=== PATIENT | male | born 1960 ===

== ENCOUNTER 2016-12-31 16:39 | Inpatient (IN) | payer MEDICARE, OTHER ==
[2016-12-31 16:39] VITALS: PULSE 84; BMI 30.1
[2016-12-31] MEDS ORDERED: Sodium Chloride 0.9% 1,000 ML IV STA ×2 (16:55)
[2016-12-31 17:23] LABS: VENOUS BLOOD GAS BASE EXCESS -0.1 mmol/L (0.0-2.0); VENOUS BLOOD GAS PO2 36 mm/Hg (30-55); VENOUS BLOOD PH 7.32 (7.32-7.43)
--- NOTE | 2016-12-31 17:25 | ED PDOC ---
Arrival/HPI - General Historian: Patient - History of Present Illness Time/Duration: > week Symptom Onset: Gradual Symptom Course: Unchanged Quality: Pressure Severity Level: Mild <Cristiano Limon - Last Filed: 12/31/16 19:56> <Brain Rodrigues - Last Filed: 12/31/16 21:49> - General Chief Complaint: Palpitations Time Seen by Provider: 12/31/16 16:40 - History of Present Illness Narrative History of Present Illness (Text): 56 M with PMH of DM, afib on anticoagulation, s/p liver transplant, Mitral valve replacement presents to ED with complaint of palpitations. Patient stated that this has been going on intermittently for 2 weeks. It was a gradual onset and have progressively gotten worse. As per patient, he saw his metallurgical or materials technician recently and he put a "monitor" on his heart. Today, his palpitations became worse and called metallurgical or materials technician who instructed him to go to ED. Patient takes coumadin daily and is compliant. Patient takes glipizide and insulin for his DM. He doesnt check sugars daily or take insulin regularly. Patient also complains of epigastric discomfort that he describes as pressure. He stated it was minimal. Nothing make symptoms better or worse. Admits to fatigue. Denies fever/chills, vision changes, dizziness/lightheadedness, vertigo, cp, cough, sob , n/v/d. PMH: DM, afib on anticoagulation, s/p liver transplant, Mitral valve replacement Meds: As per EMR Allergy: NKDA PSH: kidney transplant and mitral valve replacement in 2004 Hosp: earlier this year for palpitations FH: Denies Social: retired, former smoker, denies etoh/illict drug use 12/31/16 17:41 (Cristiano Limon) Past Medical History - Provider Review Nursing Documentation Reviewed: Yes - Travel History Have you recently traveled outside [place] w/in the past 3 mons?: No - Infectious Disease Hx of Infectious Diseases: None - Tetanus Immunization Tetanus Immunization: Unknown - Cardiac Hx Cardiac Arrhythmia: Yes Hx Mitral Valve Prolapse: Yes - Neurological HX Cerebrovascular Accident: No (2 YRS AGO) Hx Transient Ischemic Attacks (TIA): Yes - HEENT Hx Deafness: Yes (THINKS FOREIGN OBJECT INSIDE RIGHT EAR "WHOOSH SOUND") - Renal Other/Comment: liver transplant - Endocrine/Metabolic Hx Diabetes Mellitus Type 1: Yes - Hematological/Oncological Hx Hepatitis B: Yes - Musculoskeletal/Rheumatological Hx Falls: Yes - Gastrointestinal Hx Liver Failure: Yes (transplant 2004) - Psychiatric Hx Depression: No Hx Emotional Abuse: No Hx Physical Abuse: No Hx Substance Use: No - Surgical History Hx Cardiac Catheterization: Yes Hx Liver Transplant: Yes (2004) Hx Open Heart Surgery: Yes Hx Valve Replacement: Yes (MITRAL) - Suicidal Assessment Feels Threatened In Home Enviroment: No <Cristiano Limon - Last Filed: 12/31/16 19:56> Family/Social History - Physician Review Nursing Documentation Reviewed: Yes Family/Social History: No Known Family HX Smoking Status: Never Smoked Hx Alcohol Use: No Hx Substance Use: No Hx Substance Use Treatment: No <Cristiano Limon - Last Filed: 12/31/16 19:56> Allergies/Home Meds <Cristiano Limon - Last Filed: 12/31/16 19:56> <Brain Rodrigues - Last Filed: 12/31/16 21:49> Allergies/Adverse Reactions: Allergies No Known Allergies Allergy (Verified 07/21/15 21:44) Home Medications: Home Meds Medication Instructions Recorded Confirmed GlipiZIDE [Glipizide] 10 mg PO TID 07/21/15 12/31/16 Mycophenolate Mofetil [Cellcept] 750 mg PO BID 07/21/15 12/31/16 Omeprazole Magnesium [Prilosec Otc] 20 mg PO DAILY 07/21/15 12/31/16 Tacrolimus [Prograf] 1 mg PO BID 07/21/15 12/31/16 Warfarin [Coumadin] 10 mg PO DAILY 07/21/15 12/31/16 Tamsulosin [Flomax] 0.4 mg PO DAILY 12/31/16 12/31/16 Review of Systems - Review of Systems Constitutional: Fatigue. absent: Weight Change, Fevers, Night Sweats Eyes: absent: Vision Changes, Photophobia, Eye Pain ENT: absent: Hearing Changes, Tinnitus, TMJ Pain Respiratory: absent: SOB, Cough, Sputum, Wheezing Cardiovascular: Palpitations. absent: Chest Pain, Calf Pain, PATTERSON, Syncope Gastrointestinal: Abdominal Pain. absent: Constipation, Diarrhea, Nausea, Vomiting Genitourinary Male: absent: Dysuria, Frequency, Hematuria Musculoskeletal: absent: Arthralgias, Back Pain, Neck Pain, Joint Swelling Skin: absent: Rash, Pruritis, Skin Lesions, Laceration Neurological: absent: Headache, Dizziness, Focal Weakness, Seizure Endocrine: absent: Diaphoresis, Polyuria, Polydipsia Hemo/Lymphatic: absent: Adenopathy, Easy Bleeding, Easy Bruising Psychiatric: absent: Anxiety, Depression, Suicidal Ideation <Cristiano Limon - Last Filed: 12/31/16 19:56> Physical Exam Vital Signs Reviewed: Yes Temperature: Afebrile Blood Pressure: Normal Pulse: Tachycardic Respiratory Rate: Normal Appearance: Positive for: Well-Appearing, Non-Toxic, Comfortable Pain Distress: None Mental Status: Positive for: Alert and Oriented X 3 Finger Stick Blood Glucose: 428 - Systems Exam Head: Present: Atraumatic, Normocephalic Pupils: Present: PERRL Extroacular Muscles: Present: EOMI Conjunctiva: Present: Normal Ears: Present: Normal, NORMAL TM Mouth: Present: Moist Mucous Membranes Pharnyx: Present: Normal Nose (External): Present: Atraumatic Nose (Internal): Present: Normal Inspection Neck: Present: Normal Range of Motion, Trachea Midline. No: MIDLINE TENDERNESS , Paraspinal Tenderness Respiratory/Chest: Present: Clear to Auscultation, Good Air Exchange. No: Respiratory Distress, Accessory Muscle Use Cardiovascular: Present: Irregular Rhythm, Peripheal Pulses Present, Tachycardic Abdomen: Present: Normal Bowel Sounds. No: Tenderness, Distention, Peritoneal Signs, Rebound, Guarding Back: No: CVA Tenderness Upper Extremity: Present: Normal ROM, NORMAL PULSES, Neurovascularly Intact, Capillary Refill < 2s. No: Cyanosis Lower Extremity: Present: NORMAL PULSES, Normal ROM, Neurovascularly Intact, Capillary Refill < 2 s. No: Cyanosis Neurological: Present: GCS=15, CN II-XII Intact, Speech Normal, Motor Func Grossly Intact, Normal Sensory Function, Normal Cerebellar Funct Skin: Present: Warm, Dry, Normal Color Lymphatic: No: Cervical Adenopathy, Axillary Adenopathy, Inguinal Adenopathy Psychiatric: Present: Alert, Oriented x 3, Normal Insight, Normal Concentration , Normal Affect, Normal Mood <Cristiano Limon - Last Filed: 12/31/16 19:56> <Brain Rodrigues - Last Filed: 12/31/16 21:49> Vital Signs Temp Pulse Resp BP Pulse Ox 12/31/16 21:21 107 H 18 199/55 H 99 12/31/16 20:25 109 H 18 125/77 99 12/31/16 19:55 125 H 117/77 99 12/31/16 19:00 127 H 17 116/76 100 12/31/16 18:45 111 H 17 101/69 98 12/31/16 18:39 111 H 17 101/69 97 12/31/16 18:30 118 H 16 105/68 98 12/31/16 18:15 86 18 129/60 98 12/31/16 18:00 86 17 111/70 97 12/31/16 17:45 100 H 18 116/69 97 12/31/16 17:43 113 H 129/72 12/31/16 17:30 99 H 17 138/88 100 12/31/16 17:15 96 H 17 129/72 99 12/31/16 17:12 143 H 138/83 12/31/16 17:10 140 H 18 138/83 99 12/31/16 16:55 126 H 18 138/83 97 12/31/16 16:39 98.3 F 143 H 18 131/83 99 Medical Decision Making - Lab Interpretations I have reviewed the lab results: Yes Interpretation: Abnormal lab values (Glucose, Mag, LFTs) <Venkat Limony - Last Filed: 12/31/16 19:56> - Critical Care Critical Care Minutes: 60 minutes <Brain Rodrigues - Last Filed: 12/31/16 21:49> ED Course and Treatment: EKG was done immediately revealed atrial fibrillation at 145 bpm. finger stick demonstrated glucose of 428. IV fluids were started 2L. Cardizem IV was given once. HR decreased to 90s. Repeat ekg was done which showed afib at 107 bpm. Cardizem 60 mg PO given once. CXR, CBC, CMP, Cardiac enzymes, Mag, Phos, TSH, VBG, and UA ordered. Abnormal labs were Mag 1.3, glucose of 418, and elevated LFts. 2 gm of IV Mag was given. Cardizem IVP and PO did not control rate so Cardizem drip was started. Patient to be admitted. ICU attending was consulted. Tank Stave Assembler evaluated patient and accepted to ICU. (Cristiano Limon) 12/31/16 17:46 56yo male, presents to Emergency department for evaluation of palpitations, ongoing for a week. Patient Seen With Resident: In agreement with resident note which contains more details about the patient. Patient was seen and evaluated with resident. Came up with plan and treatment together. Initial EKG: Rapid Afib with HR of 145 bpm. Repeat EKG performed: Rapid Afib with HR of 107 bpm after Cardiazem 20mg IV. PO Cardiazem was ordered. 12/31/16 19:21 Patient's HR increased again to 125-130. He is asymptomatic. He was started on a cardizem drip. Patient was evaluated by Dr. Jorge and accepted to the ICU. 12/31/16 21:46 Patient has been on the cardiazem drip at 5 without titration. HR maintain at 80 -90's Afib and Blood pressure within normal range and stable. Pateint continues to be asymptomatic. I discussed the case with Dr. Yeager who will accept the case to her service. She requested Dr. Huber cardiology. Dr. Huber is being covered by Dr. Saleh. I spoke to Dr. Saleh and since patient has been stable with a controlled HR and BP as noted he is stable to go to Telemetry. Dr. Jorge was notified. (Brain Rodrigues) - Lab Interpretations Lab Results: 12/31/16 16:55 12/31/16 16:55 Lab Results 12/31/16 18:40: Urine Color Yellow, Urine Appearance Clear, Urine pH 6.0, Ur Specific [place] 1.015, Urine Protein Negative, Urine Glucose (UA) >=1000, Urine Ketones Negative, Urine Blood Trace-intact H, Urine Nitrate Negative, Urine Bilirubin Negative, Urine Urobilinogen 0.2, Ur Leukocyte Esterase Negative , Urine RBC 1 - 3, Urine WBC 0 - 2 12/31/16 16:55: TSH 3rd Generation 2.39 12/31/16 16:55: Sodium 136, Chloride 101, Potassium 4.0, Carbon Dioxide 26, Anion Gap 13, BUN 17, Creatinine 1.1, Est GFR ( Amer) > 60, Est GFR (Non- Af Amer) > 60, Random Glucose 418 H*, Calcium 9.1, Phosphorus 3.3, Magnesium 1.3 L, Total Bilirubin 1.4 H, AST 73 H, ALT 69 H, Alkaline Phosphatase 326 H, Lactate Dehydrogenase 1335 H, Total Creatine Kinase 138, Troponin I 0.01 D, Total Protein 7.7, Albumin 3.9, Globulin 3.8, Albumin/Globulin Ratio 1.0 L 12/31/16 16:55: pO2 36, VBG pH 7.32, VBG pCO2 52.0, VBG HCO3 26.8, VBG Total CO2 28.4 H, VBG O2 Sat (Calc) 77.2 H, VBG Base Excess -0.1 L, VBG Potassium 4.3 , Sodium 137.0, Chloride 103.0, Glucose 476 H*, Lactate 1.4, FiO2 21.0, Venous Blood Potassium 4.3 12/31/16 16:55: WBC 4.4 L D, RBC 4.70, Hgb 13.3 L, Hct 39.9 L, MCV 84.9, MCH 28.3, MCHC 33.3, RDW 14.8 H, Plt Count 123, MPV 11.5 H, Gran % 69.5 H, Lymph % ( Auto) 21.1 L, [place] % (Auto) 6.4 H, Eos % (Auto) 2.5, Baso % (Auto) 0.5, Gran # 3.03, Lymph # 0.9 L, [place] # 0.3, Eos # 0.1, Baso # 0.02 - RAD Interpretation Radiology Orders: 12/31/16 17:09 CXR [CHEST PORTABLE] [RAD] Stat - Medication Orders Current Medication Orders: diltiaZEM IVPB 100mg in NS (Cardizem 100mg In Ns) 100 mls @ 5 mls/hr IV .Q20H PRN; Protocol; 5 MG/HR PRN Reason: TITRATE PER MD ORDER Last Admin: 12/31/16 19:55 Dose: 5 mls/hr Insulin Human Regular (Humulin R Med) 0 units SC ACHS IVETH PRN Reason: Protocol Mycophenolate Mofetil (Cellcept Cap) 750 mg PO BID IVETH Tacrolimus (Prograf Cap) 1 mg PO BID IVETH Tamsulosin HCl (Flomax) 0.4 mg PO DAILY IVETH Warfarin Sodium (Coumadin) 10 mg PO 1800 IVETH PRN Reason: Protocol Discontinued Medications Diltiazem HCl (Cardizem) 20 mg IVP STAT STA Stop: 12/31/16 17:08 Last Admin: 12/31/16 17:12 Dose: 20 mg Diltiazem HCl (Cardizem) 60 mg PO STAT STA Stop: 12/31/16 17:26 Last Admin: 12/31/16 17:43 Dose: 60 mg Sodium Chloride (Sodium Chloride 0.9%) 1,000 mls @ 999 mls/hr IV .Q1H1M STA Stop: 12/31/16 17:55 Last Admin: 12/31/16 17:10 Dose: 999 mls/hr Sodium Chloride (Sodium Chloride 0.9%) 1,000 mls @ 999 mls/hr IV .Q1H1M STA Stop: 12/31/16 17:55 Last Admin: 12/31/16 17:10 Dose: 999 mls/hr Magnesium Sulfate 2 gm/ Sodium (Chloride) 104 mls @ 102 mls/hr IVPB ONCE ONE Stop: 12/31/16 18:48 Last Admin: 12/31/16 18:37 Dose: 102 mls/hr Mycophenolate Mofetil (Cellcept Cap) 750 mg PO ONCE ONE Stop: 12/31/16 21:21 Tacrolimus (Prograf Cap) 2 mg PO ONCE ONE Stop: 12/31/16 21:21 <Cristiano Limon - Last Filed: 12/31/16 19:56> - Scribe Statement The provider has reviewed the documentation as recorded by the Scribe <Brain Rodrigues - Last Filed: 12/31/16 21:49> - Scribe Statement Lilia Pérez Provider Scribe Attestation: All medical record entries made by the Scribe were at my direction and personally dictated by me. I have reviewed the chart and agree that the record accurately reflects my personal performance of the history, physical exam, medical decision making, and the department course for this patient. I have also personally directed, reviewed, and agree with the discharge instructions and disposition. (Brain Rodrigues) Disposition/Present on Arrival - Present on Arrival History of DVT/PE: No History of Uncontrolled Diabetes: No Urinary Catheter: No History of Decub. Ulcer: No History Surgical Site Infection Following: CABG - Mediastinitis, None <Cristiano Limon - Last Filed: 12/31/16 19:56> - Present on Arrival Any Indicators Present on Arrival: No - Disposition Have Diagnosis and Disposition been Completed?: Yes Disposition Time: 21:49 Patient Plan: Admission <Brain Rodrigues - Last Filed: 12/31/16 21:49> - Disposition Diagnosis: Atrial fibrillation with RVR, Uncontrolled diabetes mellitus Disposition: HOSPITALIZED Condition: FAIR
[2016-12-31 17:35] LABS: ALBUMIN 3.9 g/dL (3.0-4.8); ALT/SGPT 69 U/L (7-56); AST/SGOT 73 U/L (15-59); BLOOD UREA NITROGEN 17 mg/dL (7-21); CALCIUM 9.1 mg/dL (8.4-10.5); GFR AFRICAN-AMERICAN > 60; GFR NON-AFRICAN AMERICAN > 60; MAGNESIUM 1.3 mg/dL (1.7-2.2)
[2016-12-31 17:45] LABS: BASO # 0.02 K/mm3 (0.0-2.0); BASO % 0.5 % (0.0-3.0); EOS # 0.1 (0.0-0.7); EOS % 2.5 % (1.5-5.0); GRAN # 3.03 (1.4-6.5); GRAN % 69.5 % (50.0-68.0); HEMOGLOBIN 13.3 gm/dL (14.0-18.0); LYMPH # 0.9 (1.2-3.4); LYMPH % 21.1 % (22.0-35.0); MEAN CELL VOLUME 84.9 fL (80.0-105.0); MEAN CORPUSCULAR HEMOGLOBIN 28.3 pg (25.0-35.0); MEAN CORPUSCULAR HGB CONC 33.3 g/dl (31.0-37.0); MEAN PLATELET VOLUME 11.5 fl (7.0-11.0); MONO # 0.3 (0.1-0.6); MONO % 6.4 % (1.0-6.0); PLATELET COUNT 123 10^3/uL (120.0-450.0); RED CELL DISTRIBUTION WIDTH 14.8 % (11.5-14.5); WHITE BLOOD COUNT 4.4 10^3/ul (4.5-11.0)
[2016-12-31] MEDS ORDERED: Magnesium Sulfate 2 GM in Sodium Chloride 0.9% 100 ML IVPB ONE (17:47)
[2016-12-31 18:19] LABS: TROPONIN I 0.01 ng/mL
[2016-12-31 18:55] LABS: URINE BILIRUBIN NEGATIVE (NEGATIVE); URINE BLOOD TRACE-INTACT (NEGATIVE); URINE GLUCOSE (UA) >=1000 mg/dL (NEGATIVE); URINE LEUKOCYTE ESTERASE NEGATIVE Leu/uL (NEGATIVE); URINE NITRATE NEGATIVE (NEGATIVE); URINE PROTEIN NEGATIVE mg/dL (<30 mg/dL); URINE UROBILINOGEN 0.2 E.U./dL (<1 E.U./dL)
[2016-12-31 18:58] LABS: URINE APPEARANCE CLEAR (CLEAR); URINE COLOR YELLOW (YELLOW)
[2016-12-31 19:01] LABS: URINE WBC 0 - 2 /hpf (0-6)
[2016-12-31] MEDS ORDERED: diltiaZEM IVPB 100mg in NS 100 ML IV PRN (19:21)
[2016-12-31] MEDS: Insulin Reg-MEDIUM-Coverage SC SCH (21:47)
[2016-12-31 22:31] LABS: INR 1.81 (0.93-1.08); PROTHROMBIN TIME 19.6 Seconds (9.9-11.8)
--- NOTE | 2017-01-01 05:31 | CP.PCM.PN ---
Subjective - Date & Time of Evaluation Date of Evaluation: 01/01/17 Time of Evaluation: 05:28 - Subjective Subjective: Patient was seen at bedside. Nurse had called to report that monitor showed bradycardia for short period and then it converted to sinus rhythm.Cardizem has been held. has no complaints. Denied chest pain, sob, nausea, sweating, palpitation. This 56 year old male is admitted with atrial fibrillation with RVR , uncontrolled DM. Has PMH of DM I,CVA, cardiac arrhythmia, TIA, deafness, falls, hepatitis B, Cirrhosis, Liver transplant, MVR, cardiac catheterization, Objective - Vital Signs/Intake and Output Vital Signs (last 24 hours): Temp Pulse Resp BP Pulse Ox 98.1 F 80 20 149/75 99 01/01/17 00:01 01/01/17 02:00 01/01/17 00:01 01/01/17 00:01 12/31/16 23:45 Intake and Output: 12/31/16 01/01/17 18:59 06:59 Intake Total 120 Output Total 450 Balance -330 - Medications Medications: Current Medications diltiaZEM IVPB 100mg in NS (Cardizem 100mg In Ns) 100 mls @ 5 mls/hr IV .Q20H PRN; Protocol; 5 MG/HR PRN Reason: TITRATE PER MD ORDER Last Admin: 12/31/16 19:55 Dose: 5 mls/hr Insulin Human Regular (Humulin R Med) 0 units SC ACHS IVETH PRN Reason: Protocol Last Admin: 12/31/16 21:47 Dose: Not Given Mycophenolate Mofetil (Cellcept Cap) 750 mg PO BID IVETH Tacrolimus (Prograf Cap) 1 mg PO BID IVETH Tamsulosin HCl (Flomax) 0.4 mg PO DAILY IVETH Warfarin Sodium (Coumadin) 10 mg PO 1800 IVETH PRN Reason: Protocol - Labs Labs: PT 19.6 Seconds (9.9-11.8) H 12/31/16 16:55 INR 1.81 (0.93-1.08) H 12/31/16 16:55 APTT 32.0 Seconds (23.7-30.8) H 12/31/16 16:55 Lab Studies 01/01/17 12/31/16 12/31/16 Range/Units 01:36 18:40 16:55 WBC (4.5-11.0) 10^3/ul RBC (3.5-6.1) 10^6/uL Hgb (14.0-18.0) gm/dL Hct (42.0-52.0) % MCV (80.0-105.0) fL MCH (25.0-35.0) pg MCHC (31.0-37.0) g/dl RDW (11.5-14.5) % Plt Count (120.0-450.0) 10^3/uL MPV (7.0-11.0) fl Gran % (50.0-68.0) % Lymph % (Auto) (22.0-35.0) % [place] % (Auto) (1.0-6.0) % Eos % (Auto) (1.5-5.0) % Baso % (Auto) (0.0-3.0) % Gran # (1.4-6.5) Lymph # (1.2-3.4) [place] # (0.1-0.6) Eos # (0.0-0.7) Baso # (0.0-2.0) K/mm3 PT 19.6 H (9.9-11.8) Seconds INR 1.81 H (0.93-1.08) APTT 32.0 H (23.7-30.8) Seconds pO2 (30-55) mm/Hg VBG pH (7.32-7.43) VBG pCO2 (40-60) VBG HCO3 (21-28) mmol/l VBG Total CO2 (22-28) mmol.L VBG O2 Sat (Calc) (40-65) % VBG Base Excess (0.0-2.0) mmol/L VBG Potassium (3.6-5.2) mmol/L Sodium (132-148) mmol/L Chloride (98-107) mmol/L Glucose (75-110) mg/dl Lactate (0.7-2.1) mmol/L FiO2 % Potassium (3.6-5.0) mmol/L Carbon Dioxide (21-33) mmol/L Anion Gap (10-20) BUN (7-21) mg/dL Creatinine (0.5-1.4) mg/dL Est GFR ( Amer) Est GFR (Non-Af Amer) POC Glucose (mg/dL) 286 H (65-110) mg/dL Random Glucose (70-110) mg/dL Calcium (8.4-10.5) mg/dL Phosphorus (2.5-4.5) mg/dL Magnesium (1.7-2.2) mg/dL Total Bilirubin (0.2-1.3) mg/dL AST (15-59) U/L ALT (7-56) U/L Alkaline Phosphatase (38-133) U/L Lactate Dehydrogenase (333-699) U/L Total Creatine Kinase (35-230) U/L Troponin I ng/mL Total Protein (5.8-8.3) g/dL Albumin (3.0-4.8) g/dL Globulin gm/dL Albumin/Globulin Ratio (1.1-1.8) TSH 3rd Generation (0.46-4.68) mIU/mL Venous Blood Potassium (3.6-5.2) mmol/L Urine Color Yellow (YELLOW) Urine Appearance Clear (CLEAR) Urine pH 6.0 (4.7-8.0) Ur Specific [place] 1.015 (1.005-1.035) Urine Protein Negative (<30 mg/dL) mg/dL Urine Glucose (UA) >=1000 (NEGATIVE) mg/dL Urine Ketones Negative (NEGATIVE) mg/dL Urine Blood Trace-intact H (NEGATIVE) Urine Nitrate Negative (NEGATIVE) Urine Bilirubin Negative (NEGATIVE) Urine Urobilinogen 0.2 (<1 E.U./dL) E.U./dL Ur Leukocyte Esterase Negative (NEGATIVE) [place]/uL Urine RBC 1 - 3 (0-2) /hpf Urine WBC 0 - 2 (0-6) /hpf 12/31/16 12/31/16 12/31/16 Range/Units 16:55 16:55 16:55 WBC (4.5-11.0) 10^3/ul RBC (3.5-6.1) 10^6/uL Hgb (14.0-18.0) gm/dL Hct (42.0-52.0) % MCV (80.0-105.0) fL MCH (25.0-35.0) pg MCHC (31.0-37.0) g/dl RDW (11.5-14.5) % Plt Count (120.0-450.0) 10^3/uL MPV (7.0-11.0) fl Gran % (50.0-68.0) % Lymph % (Auto) (22.0-35.0) % [place] % (Auto) (1.0-6.0) % Eos % (Auto) (1.5-5.0) % Baso % (Auto) (0.0-3.0) % Gran # (1.4-6.5) Lymph # (1.2-3.4) [place] # (0.1-0.6) Eos # (0.0-0.7) Baso # (0.0-2.0) K/mm3 PT (9.9-11.8) Seconds INR (0.93-1.08) APTT (23.7-30.8) Seconds pO2 36 (30-55) mm/Hg VBG pH 7.32 (7.32-7.43) VBG pCO2 52.0 (40-60) VBG HCO3 26.8 (21-28) mmol/l VBG Total CO2 28.4 H (22-28) mmol.L VBG O2 Sat (Calc) 77.2 H (40-65) % VBG Base Excess -0.1 L (0.0-2.0) mmol/L VBG Potassium 4.3 (3.6-5.2) mmol/L Sodium 136 137.0 (132-148) mmol/L Chloride 101 103.0 (98-107) mmol/L Glucose 476 H* (75-110) mg/dl Lactate 1.4 (0.7-2.1) mmol/L FiO2 21.0 % Potassium 4.0 (3.6-5.0) mmol/L Carbon Dioxide 26 (21-33) mmol/L Anion Gap 13 (10-20) BUN 17 (7-21) mg/dL Creatinine 1.1 (0.5-1.4) mg/dL Est GFR ( Amer) > 60 Est GFR (Non-Af Amer) > 60 POC Glucose (mg/dL) (65-110) mg/dL Random Glucose 418 H* (70-110) mg/dL Calcium 9.1 (8.4-10.5) mg/dL Phosphorus 3.3 (2.5-4.5) mg/dL Magnesium 1.3 L (1.7-2.2) mg/dL Total Bilirubin 1.4 H (0.2-1.3) mg/dL AST 73 H (15-59) U/L ALT 69 H (7-56) U/L Alkaline Phosphatase 326 H (38-133) U/L Lactate Dehydrogenase 1335 H (333-699) U/L Total Creatine Kinase 138 (35-230) U/L Troponin I 0.01 D ng/mL Total Protein 7.7 (5.8-8.3) g/dL Albumin 3.9 (3.0-4.8) g/dL Globulin 3.8 gm/dL Albumin/Globulin Ratio 1.0 L (1.1-1.8) TSH 3rd Generation 2.39 (0.46-4.68) mIU/mL Venous Blood Potassium 4.3 (3.6-5.2) mmol/L Urine Color (YELLOW) Urine Appearance (CLEAR) Urine pH (4.7-8.0) Ur Specific [place] (1.005-1.035) Urine Protein (<30 mg/dL) mg/dL Urine Glucose (UA) (NEGATIVE) mg/dL Urine Ketones (NEGATIVE) mg/dL Urine Blood (NEGATIVE) Urine Nitrate (NEGATIVE) Urine Bilirubin (NEGATIVE) Urine Urobilinogen (<1 E.U./dL) E.U./dL Ur Leukocyte Esterase (NEGATIVE) [place]/uL Urine RBC (0-2) /hpf Urine WBC (0-6) /hpf 12/31/16 Range/Units 16:55 WBC 4.4 L D (4.5-11.0) 10^3/ul RBC 4.70 (3.5-6.1) 10^6/uL Hgb 13.3 L (14.0-18.0) gm/dL Hct 39.9 L (42.0-52.0) % MCV 84.9 (80.0-105.0) fL MCH 28.3 (25.0-35.0) pg MCHC 33.3 (31.0-37.0) g/dl RDW 14.8 H (11.5-14.5) % Plt Count 123 (120.0-450.0) 10^3/uL MPV 11.5 H (7.0-11.0) fl Gran % 69.5 H (50.0-68.0) % Lymph % (Auto) 21.1 L (22.0-35.0) % [place] % (Auto) 6.4 H (1.0-6.0) % Eos % (Auto) 2.5 (1.5-5.0) % Baso % (Auto) 0.5 (0.0-3.0) % Gran # 3.03 (1.4-6.5) Lymph # 0.9 L (1.2-3.4) [place] # 0.3 (0.1-0.6) Eos # 0.1 (0.0-0.7) Baso # 0.02 (0.0-2.0) K/mm3 PT (9.9-11.8) Seconds INR (0.93-1.08) APTT (23.7-30.8) Seconds pO2 (30-55) mm/Hg VBG pH (7.32-7.43) VBG pCO2 (40-60) VBG HCO3 (21-28) mmol/l VBG Total CO2 (22-28) mmol.L VBG O2 Sat (Calc) (40-65) % VBG Base Excess (0.0-2.0) mmol/L VBG Potassium (3.6-5.2) mmol/L Sodium (132-148) mmol/L Chloride (98-107) mmol/L Glucose (75-110) mg/dl Lactate (0.7-2.1) mmol/L FiO2 % Potassium (3.6-5.0) mmol/L Carbon Dioxide (21-33) mmol/L Anion Gap (10-20) BUN (7-21) mg/dL Creatinine (0.5-1.4) mg/dL Est GFR ( Amer) Est GFR (Non-Af Amer) POC Glucose (mg/dL) (65-110) mg/dL Random Glucose (70-110) mg/dL Calcium (8.4-10.5) mg/dL Phosphorus (2.5-4.5) mg/dL Magnesium (1.7-2.2) mg/dL Total Bilirubin (0.2-1.3) mg/dL AST (15-59) U/L ALT (7-56) U/L Alkaline Phosphatase (38-133) U/L Lactate Dehydrogenase (333-699) U/L Total Creatine Kinase (35-230) U/L Troponin I ng/mL Total Protein (5.8-8.3) g/dL Albumin (3.0-4.8) g/dL Globulin gm/dL Albumin/Globulin Ratio (1.1-1.8) TSH 3rd Generation (0.46-4.68) mIU/mL Venous Blood Potassium (3.6-5.2) mmol/L Urine Color (YELLOW) Urine Appearance (CLEAR) Urine pH (4.7-8.0) Ur Specific [place] (1.005-1.035) Urine Protein (<30 mg/dL) mg/dL Urine Glucose (UA) (NEGATIVE) mg/dL Urine Ketones (NEGATIVE) mg/dL Urine Blood (NEGATIVE) Urine Nitrate (NEGATIVE) Urine Bilirubin (NEGATIVE) Urine Urobilinogen (<1 E.U./dL) E.U./dL Ur Leukocyte Esterase (NEGATIVE) [place]/uL Urine RBC (0-2) /hpf Urine WBC (0-6) /hpf - Constitutional Appears: Well, No Acute Distress - Head Exam Head Exam: ATRAUMATIC, NORMAL INSPECTION, NORMOCEPHALIC - Eye Exam Eye Exam: Normal appearance - ENT Exam ENT Exam: Normal External Ear Exam - Neck Exam Neck Exam: Normal Inspection - Respiratory Exam Respiratory Exam: NORMAL BREATHING PATTERN - Cardiovascular Exam Cardiovascular Exam: absent: JVD - GI/Abdominal Exam GI & Abdominal Exam: absent: Distended - Rectal Exam Rectal Exam: Deferred - Exam Additional comments: Deferred. - Extremities Exam Extremities Exam: Normal Inspection - Back Exam Back Exam: NORMAL INSPECTION - Neurological Exam Neurological Exam: Alert, Oriented x3 - Psychiatric Exam Psychiatric exam: Normal Affect, Normal Mood - Skin Skin Exam: Normal Color Assessment and Plan - Assessment and Plan (Free Text) Assessment: Atrial fibrillation with RVR. Uncontrolled DM. Hypomagnesemia. Cirrhosis. History CVA. History Liver transplant. Plan: Hold cardizem for now. Continue management as per PMD.
--- NOTE | 2017-01-01 07:04 | CP.PCM.PCO ---
<TONEY CAMP - Last Filed: 01/01/17 07:17> Physician Communication Note - Physician Communication Note Physician Communication Note: [place] [facility] [place] with a fib rvr which was treated Additional Comments - Additional Comments Additional Comments: A fib rvr was treated with 60 mg PO Cardizem, followed by 20 mg IV cardizem. Patients vitals were stable. Dr. Saleh, cardiology agreed that since patient was stable, ICU transfer was not necessary and transfer to the floors for telemetry would suffice. Will continue with cardizem 100 mg IV 5mg/Hr <Ania EWING,Andres - Last Filed: 01/06/17 10:19> Attending/Attestation - Attestation I have personally seen and examined this patient.: Yes I have fully participated in the care of the patient.: Yes I have reviewed all pertinent clinical information: Yes Notes (Text): 01/06/17 10:19
[2017-01-01] MEDS: Insulin Reg-MEDIUM-Coverage SC SCH ×4 (08:41→22:03)
--- NOTE | 2017-01-01 08:44 | RAD ---
HISTORY: epigastric discomfort COMPARISON: 06/20/2016 02/18/2013 FINDINGS: LUNGS: No interval infiltrate. Left basilar discoid atelectasis and/or fibrosis -similar to 2013 PLEURA: No significant pleural effusion identified, no pneumothorax apparent. CARDIOVASCULAR: Midline sternotomy and cardiac valve prosthesis unchanged. Minimal cardiomegaly. Probable chronic mild pulmonary venous congestion -no interval change in appearance OSSEOUS STRUCTURES: No significant abnormalities. VISUALIZED UPPER ABDOMEN: The central gas like density at the thoraco lumbar junction is noted in 2012 probably relating to central transverse colon gas per CT 02/01/2014 study OTHER FINDINGS: None. IMPRESSION: No interval pathology noted
[2017-01-01 10:54] LABS: BASO # 0.02 K/mm3 (0.0-2.0); BASO % 0.6 % (0.0-3.0); EOS # 0.1 (0.0-0.7); EOS % 3.2 % (1.5-5.0); GRAN # 2.25 (1.4-6.5); GRAN % 65.8 % (50.0-68.0); HEMOGLOBIN 12.4 gm/dL (14.0-18.0); LYMPH # 0.8 (1.2-3.4); MEAN CELL VOLUME 85.3 fL (80.0-105.0); MEAN CORPUSCULAR HGB CONC 32.8 g/dl (31.0-37.0); MEAN PLATELET VOLUME 11.2 fl (7.0-11.0); MONO # 0.2 (0.1-0.6); MONO % 6.4 % (1.0-6.0); PLATELET COUNT 107 10^3/uL (120.0-450.0); RBC 4.43 10^6/uL (3.5-6.1); RED CELL DISTRIBUTION WIDTH 14.9 % (11.5-14.5); WHITE BLOOD COUNT 3.4 10^3/ul (4.5-11.0)
[2017-01-01] MEDS: Pantoprazole 40 mg EC Tab PO SCH (10:58)
[2017-01-01] MEDS: Magnesium Oxide 400 mg Tab UD PO SCH ×2 (10:58→17:50)
[2017-01-01 11:06] LABS: ALBUMIN 3.4 g/dL (3.0-4.8); ALT/SGPT 57 U/L (7-56); AST/SGOT 60 U/L (15-59); BLOOD UREA NITROGEN 16 mg/dL (7-21); CALCIUM 8.6 mg/dL (8.4-10.5); GFR AFRICAN-AMERICAN > 60; GFR NON-AFRICAN AMERICAN > 60; HDL CHOLESTEROL 63 mg/dL (29-60); MAGNESIUM 1.4 mg/dL (1.7-2.2)
[2017-01-01 11:16] LABS: LDL CHOLESTEROL 72 mg/dL (0-129)
[2017-01-01 11:20] LABS: B-TYPE NATRIURETIC PEPTIDE 1160 pg/mL (0-450)
[2017-01-01 11:23] LABS: TROPONIN I < 0.01 ng/mL
[2017-01-01] MEDS ORDERED: Magnesium Sulfate 2 GM in Sodium Chloride 0.9% 100 ML IVPB ONE (11:25)
[2017-01-01 12:04] LABS: INR 1.64 (0.93-1.08); PROTHROMBIN TIME 17.7 Seconds (9.9-11.8)
[2017-01-01 12:56] LABS: % IRON SATURATION 24 % (20-55); IRON 74 ug/dL (45-180); TOTAL IRON BINDING CAPACITY 308 ug/dL (261-462)
--- NOTE | 2017-01-01 12:57 | CP.PCM.CON ---
History of Present Illness - History of Present Illness History of Present Illness: Patient known case of Prosthetic Mitral Valve Replacement, Atrial Fibrillation, Liver transplant, DM, admitted with palpitations. Found to have Atrial Fibrillation with Rapid Ventricular Rate.Denied chest pain , SOB,Dizzyness, Syncope,Nausea Vomiting. Review of Systems - Review of Systems Review of Systems: All systems reviewed and positive mentioned in History. Others were Negative. Past Patient History - Infectious Disease Hx of Infectious Diseases: None - Tetanus Immunizations Tetanus Immunization: Unknown - Past Medical History & Family History Past Medical History?: Yes Pertinent Family History: History of Prosthetic Mitral Valve Replacement and Liver Transplant both in 2004. H/O Atrial Fibrillation and DM. - Past Social History Smoking Status: Never Smoked - CARDIAC Hx Cardia Arrhythmia: Yes (A Fib) Hx Mitral Valve Prolapse: Yes - PULMONARY Other/Comment: No Shortness of Breath. - NEUROLOGICAL HX Cerebrovascular Accident: Yes Hx Transient Ischemic Attacks (TIA): Yes - HEENT Hx Deafness: Yes ([place] in right ear) - RENAL Other/Comment: liver transplant - ENDOCRINE/METABOLIC Hx Diabetes Mellitus Type 1: Yes - HEMATOLOGICAL/ONCOLOGICAL Hx Hepatitis B: Yes - MUSCULOSKELETAL/RHEUMATOLOGICAL Hx Falls: No - GASTROINTESTINAL Hx Liver Failure: Yes (transplant 2004) - GENITOURINARY/GYNECOLOGICAL Hx Prostate Problems: Yes - PSYCHIATRIC Hx Depression: No Hx Emotional Abuse: No Hx Physical Abuse: No - SURGICAL HISTORY Hx Cardiac Catheterization: Yes Hx Liver Transplant: Yes (2004) Hx Open Heart Surgery: Yes Hx Valve Replacement: Yes (MITRAL) Meds Allergies/Adverse Reactions: Allergies Allergy/AdvReac Type Severity Reaction Status Date / Time No Known Allergies Allergy Verified 07/21/15 21:44 - Medications Medications: Current Medications Glipizide (Glucotrol) 10 mg PO TID [facility] Last Admin: 01/01/17 10:58 Dose: 10 mg Magnesium Sulfate 2 gm/ Sodium (Chloride) 104 mls @ 102 mls/hr IVPB ONCE ONE Stop: 01/01/17 12:26 Insulin Human Regular (Humulin R Med) 0 units SC ACHS [facility] PRN Reason: Protocol Last Admin: 01/01/17 08:41 Dose: 5 units Magnesium Oxide (Mag-Ox) 400 mg PO BID [facility] Last Admin: 01/01/17 10:58 Dose: 400 mg Metoprolol Tartrate (Lopressor) 50 mg PO BID [facility] Mycophenolate Mofetil (Cellcept Cap) 750 mg PO BID [facility] Last Admin: 01/01/17 11:07 Dose: 750 mg Pantoprazole Sodium (Protonix Ec Tab) 40 mg PO DAILY [facility] Last Admin: 01/01/17 10:58 Dose: 40 mg Tacrolimus (Prograf Cap) 1 mg PO BID [facility] Last Admin: 01/01/17 10:59 Dose: 1 mg Tamsulosin HCl (Flomax) 0.4 mg PO DAILY [facility] Last Admin: 01/01/17 10:58 Dose: 0.4 mg Verapamil HCl (Calan Tab) 80 mg PO TID [facility] Warfarin Sodium (Coumadin) 10 mg PO 1800 [facility] PRN Reason: Protocol Physical Exam - Head Exam Head Exam: NORMOCEPHALIC - Eye Exam Eye Exam: Normal appearance - ENT Exam ENT Exam: Mucous Membranes Moist, Normal Exam - Neck Exam Neck exam: Positive for: Normal Inspection - Cardiovascular Exam Cardiovascular Exam: +S1, +S2 Additional comments: Prosthetic Mitral Valve Sounds. - GI/Abdominal Exam Additional comments: No Organomegaly, No Tenderness. Normal Bowel Sounds. Results - Vital Signs Recent Vital Signs: Last Vital Signs Temp 98 F 01/01/17 11:34 Pulse 69 01/01/17 11:34 Resp 20 01/01/17 11:34 BP 121/69 01/01/17 11:34 Pulse Ox 98 01/01/17 06:00 - Labs Result Diagrams: 01/01/17 10:30 01/01/17 10:30 Labs: Laboratory Results - last 24 hr 12/31/16 01/01/17 01/01/17 21:05 01:36 08:12 WBC RBC Hgb Hct MCV MCH MCHC RDW Plt Count MPV Gran % Lymph % (Auto) [place] % (Auto) Eos % (Auto) Baso % (Auto) Gran # Lymph # [place] # Eos # Baso # Sodium Potassium Chloride Carbon Dioxide Anion Gap BUN Creatinine Est GFR ( Amer) Est GFR (Non-Af Amer) POC Glucose (mg/dL) 286 H 272 H Random Glucose Hemoglobin A1c 11.6 H Calcium Phosphorus Magnesium Total Bilirubin AST ALT Alkaline Phosphatase Lactate Dehydrogenase Total Creatine Kinase Troponin I NT-Pro-B Natriuret Pep Total Protein Albumin Globulin Albumin/Globulin Ratio Triglycerides Cholesterol LDL Cholesterol Direct HDL Cholesterol 01/01/17 01/01/17 01/01/17 10:30 10:30 10:57 WBC 3.4 L D RBC 4.43 Hgb 12.4 L Hct 37.8 L MCV 85.3 MCH 28.0 MCHC 32.8 RDW 14.9 H Plt Count 107 L MPV 11.2 H Gran % 65.8 Lymph % (Auto) 24.0 [place] % (Auto) 6.4 H Eos % (Auto) 3.2 Baso % (Auto) 0.6 Gran # 2.25 Lymph # 0.8 L [place] # 0.2 Eos # 0.1 Baso # 0.02 Sodium 135 Potassium 4.7 Chloride 102 Carbon Dioxide 27 Anion Gap 11 BUN 16 Creatinine 0.8 Est GFR ( Amer) > 60 Est GFR (Non-Af Amer) > 60 POC Glucose (mg/dL) 367 H Random Glucose 398 H* Hemoglobin A1c Calcium 8.6 Phosphorus 2.6 Magnesium 1.4 L Total Bilirubin 1.3 AST 60 H ALT 57 H Alkaline Phosphatase 241 H Lactate Dehydrogenase 1075 H Total Creatine Kinase 107 Troponin I < 0.01 NT-Pro-B Natriuret Pep 1160 H Total Protein 6.8 Albumin 3.4 Globulin 3.5 Albumin/Globulin Ratio 1.0 L Triglycerides 93 Cholesterol 166 LDL Cholesterol Direct 72 HDL Cholesterol 63 H Assessment & Plan - Assessment and Plan (Free Text) Assessment: Atrial Fibrillation Rapid Ventricular Rate Converted to Sinus Rythm. Prosthetic Mitral Valve, Liver Transplant, DM. Plan: Follow todays PT, INR. Patient was taking home Verapamil 40mg Q * Hourly but will Increase now to 80mg TID. Continue Metoprolol Succinate 50mg BID, Coumadine 10mg Daily. Ptient follows with Dr Escamilla in [facility] and wants to continue to follow with him. - Date & Time Date: 01/01/17 Time: 08:00
--- NOTE | 2017-01-01 14:20 | CP.PCM.CON ---
History of Present Illness - History of Present Illness History of Present Illness: 56 M with PMH of DM, afib on anticoagulation, s/p liver transplant, Mitral valve replacement presents to ED with complaint of palpitations. Patient stated that this has been going on intermittently for 2 weeks. It was a gradual onset and have progressively gotten worse. As per patient, he saw his sound effects manager recently and he put a "monitor" on his heart. Today, his palpitations became worse and called sound effects manager who instructed him to go to ED. Patient takes coumadin daily and is compliant. Patient takes glipizide and insulin for his DM. He doesnt check sugars daily or take insulin regularly. Patient also complains of epigastric discomfort that he describes as pressure. He stated it was minimal. Nothing make symptoms better or worse. Admits to fatigue. Denies fever/chills, vision changes, dizziness/lightheadedness, vertigo, cp, cough, sob , n/v/d. 01/01/2017: admite to have load snoring, day time sleepiness, Review of Systems - Constitutional Constitutional: Daytime Sleepiness, Snoring, Sleep Apnea - EENT Eyes: absent: Discharge, Dry Eye, Pain Nose/Mouth/Throat: Dry Mouth. absent: Post Nasal Drip, Sinus Pain, Sinus Pressure, Sore Throat - Cardiovascular Cardiovascular: Dyspnea. absent: Chest Pain, Diaphoresis, Edema - Respiratory Respiratory: Dyspnea. absent: Cough, Hemoptysis, Wheezing, Chest Congestion - Gastrointestinal Gastrointestinal: absent: Bloating, Dysphagia, Excessive Flatus - Genitourinary Genitourinary: Nocturia. absent: Dysuria, Freq UTI - Musculoskeletal Musculoskeletal: absent: Muscle Cramps, Neck Pain - Neurological Neurological: absent: Dizziness, Numbness, Focal Weakness, Headaches - Psychiatric Psychiatric: absent: Anxiety, Confusion, Depression - Endocrine Endocrine: absent: Fatigue, Flushing, Heat Intolorance - Hematologic/Lymphatic Hematologic: absent: Easy Bleeding, Easy Bruising Past Patient History - Infectious Disease Hx of Infectious Diseases: None - Tetanus Immunizations Tetanus Immunization: Unknown - Past Medical History & Family History Past Medical History?: Yes - Past Social History Smoking Status: Never Smoked - CARDIAC Hx Cardia Arrhythmia: Yes (A Fib) Hx Mitral Valve Prolapse: Yes - PULMONARY Other/Comment: No Shortness of Breath. - NEUROLOGICAL HX Cerebrovascular Accident: Yes Hx Transient Ischemic Attacks (TIA): Yes - HEENT Hx Deafness: Yes ([place] in right ear) - RENAL Other/Comment: liver transplant - ENDOCRINE/METABOLIC Hx Diabetes Mellitus Type 1: Yes - HEMATOLOGICAL/ONCOLOGICAL Hx Hepatitis B: Yes - MUSCULOSKELETAL/RHEUMATOLOGICAL Hx Falls: No - GASTROINTESTINAL Hx Liver Failure: Yes (transplant 2004) - GENITOURINARY/GYNECOLOGICAL Hx Prostate Problems: Yes - PSYCHIATRIC Hx Depression: No Hx Emotional Abuse: No Hx Physical Abuse: No - SURGICAL HISTORY Hx Cardiac Catheterization: Yes Hx Liver Transplant: Yes (2004) Hx Open Heart Surgery: Yes Hx Valve Replacement: Yes (MITRAL) Meds Allergies/Adverse Reactions: Allergies Allergy/AdvReac Type Severity Reaction Status Date / Time No Known Allergies Allergy Verified 07/21/15 21:44 - Medications Medications: Current Medications Glipizide (Glucotrol) 10 mg PO TID [facility] Last Admin: 01/01/17 10:58 Dose: 10 mg Insulin Human Regular (Humulin R Med) 0 units SC ACHS [facility] PRN Reason: Protocol Last Admin: 01/01/17 12:26 Dose: 8 units Magnesium Oxide (Mag-Ox) 400 mg PO BID [facility] Last Admin: 01/01/17 10:58 Dose: 400 mg Metoprolol Tartrate (Lopressor) 50 mg PO BID [facility] Mycophenolate Mofetil (Cellcept Cap) 750 mg PO BID [facility] Last Admin: 01/01/17 11:07 Dose: 750 mg Pantoprazole Sodium (Protonix Ec Tab) 40 mg PO DAILY [facility] Last Admin: 01/01/17 10:58 Dose: 40 mg Tacrolimus (Prograf Cap) 1 mg PO BID [facility] Last Admin: 01/01/17 10:59 Dose: 1 mg Tamsulosin HCl (Flomax) 0.4 mg PO DAILY [facility] Last Admin: 01/01/17 10:58 Dose: 0.4 mg Verapamil HCl (Calan Tab) 80 mg PO TID [facility] Warfarin Sodium (Coumadin) 10 mg PO 1800 [facility] PRN Reason: Protocol Physical Exam - Constitutional Appears: No Acute Distress - Head Exam Head Exam: ATRAUMATIC, NORMAL INSPECTION, NORMOCEPHALIC - Neck Exam Neck exam: Positive for: Normal Inspection Additional comments: crowded air way, - Respiratory Exam Respiratory Exam: Clear to Auscultation Bilateral, NORMAL BREATHING PATTERN - Cardiovascular Exam Cardiovascular Exam: Clicks, Irregular Rhythm - GI/Abdominal Exam GI & Abdominal Exam: Normal Bowel Sounds, Soft. absent: Tenderness - Neurological Exam Neurological exam: Alert, CN II-XII Intact, Normal Gait, Oriented x3, Reflexes Normal - Skin Skin Exam: Dry, Intact, Normal Color, Warm Results - Vital Signs Recent Vital Signs: Last Vital Signs Temp 98 F 01/01/17 11:34 Pulse 69 01/01/17 11:34 Resp 20 01/01/17 11:34 BP 121/69 01/01/17 11:34 Pulse Ox 98 01/01/17 06:00 - Labs Result Diagrams: 01/01/17 10:30 01/01/17 10:30 Labs: Laboratory Results - last 24 hr 12/31/16 01/01/17 01/01/17 21:05 01:36 08:12 WBC RBC Hgb Hct MCV MCH MCHC RDW Plt Count MPV Gran % Lymph % (Auto) [place] % (Auto) Eos % (Auto) Baso % (Auto) Gran # Lymph # [place] # Eos # Baso # PT INR Sodium Potassium Chloride Carbon Dioxide Anion Gap BUN Creatinine Est GFR ( Amer) Est GFR (Non-Af Amer) POC Glucose (mg/dL) 286 H 272 H Random Glucose Hemoglobin A1c 11.6 H Calcium Phosphorus Magnesium Iron TIBC % Saturation Total Bilirubin AST ALT Alkaline Phosphatase Lactate Dehydrogenase Total Creatine Kinase Troponin I NT-Pro-B Natriuret Pep Total Protein Albumin Globulin Albumin/Globulin Ratio Triglycerides Cholesterol LDL Cholesterol Direct HDL Cholesterol 01/01/17 01/01/17 01/01/17 10:30 10:30 10:57 WBC 3.4 L D RBC 4.43 Hgb 12.4 L Hct 37.8 L MCV 85.3 MCH 28.0 MCHC 32.8 RDW 14.9 H Plt Count 107 L MPV 11.2 H Gran % 65.8 Lymph % (Auto) 24.0 [place] % (Auto) 6.4 H Eos % (Auto) 3.2 Baso % (Auto) 0.6 Gran # 2.25 Lymph # 0.8 L [place] # 0.2 Eos # 0.1 Baso # 0.02 PT INR Sodium 135 Potassium 4.7 Chloride 102 Carbon Dioxide 27 Anion Gap 11 BUN 16 Creatinine 0.8 Est GFR ( Amer) > 60 Est GFR (Non-Af Amer) > 60 POC Glucose (mg/dL) 367 H Random Glucose 398 H* Hemoglobin A1c Calcium 8.6 Phosphorus 2.6 Magnesium 1.4 L Iron TIBC % Saturation Total Bilirubin 1.3 AST 60 H ALT 57 H Alkaline Phosphatase 241 H Lactate Dehydrogenase 1075 H Total Creatine Kinase 107 Troponin I < 0.01 NT-Pro-B Natriuret Pep 1160 H Total Protein 6.8 Albumin 3.4 Globulin 3.5 Albumin/Globulin Ratio 1.0 L Triglycerides 93 Cholesterol 166 LDL Cholesterol Direct 72 HDL Cholesterol 63 H 01/01/17 01/01/17 11:30 11:32 WBC RBC Hgb Hct MCV MCH MCHC RDW Plt Count MPV Gran % Lymph % (Auto) [place] % (Auto) Eos % (Auto) Baso % (Auto) Gran # Lymph # [place] # Eos # Baso # PT 17.7 H INR 1.64 H Sodium Potassium Chloride Carbon Dioxide Anion Gap BUN Creatinine Est GFR ( Amer) Est GFR (Non-Af Amer) POC Glucose (mg/dL) Random Glucose Hemoglobin A1c Calcium Phosphorus Magnesium Iron 74 TIBC 308 % Saturation 24 Total Bilirubin AST ALT Alkaline Phosphatase Lactate Dehydrogenase Total Creatine Kinase Troponin I NT-Pro-B Natriuret Pep Total Protein Albumin Globulin Albumin/Globulin Ratio Triglycerides Cholesterol LDL Cholesterol Direct HDL Cholesterol Assessment & Plan (1) BETTIE (obstructive sleep apnea) Assessment and Plan: sleep apnea precaution, out patient sleep study,avoid sedation Status: Acute (2) H/O prosthetic mitral valve Assessment and Plan: on anticoagulation Status: Acute (3) Atrial fibrillation with RVR Assessment and Plan: on anticoagulation and presently controle rate on iv cardiazem Status: Acute (4) Uncontrolled diabetes mellitus Assessment and Plan: followup BS Status: Acute (5) COPD (chronic obstructive pulmonary disease) Assessment and Plan: out patient PFT Status: Acute
--- NOTE | 2017-01-01 16:43 | CARD ---
APPROVED REPORT EKG Measurement Heart [id number] <Conclusion> Atrial fibrillation with rapid ventricular response with premature ventricular or aberrantly conducted complexes Rightward axis Abnormal ECG
--- NOTE | 2017-01-01 16:43 | CARD ---
APPROVED REPORT EKG Measurement Heart [id number] <Conclusion> Atrial flutter with variable AV block with premature ventricular or aberrantly conducted complexes Rightward axis ST & T wave abnormality, consider inferior ischemia Abnormal ECG
[2017-01-01 17:40] LABS: FOLATE 15.8 ng/mL
[2017-01-01] MEDS: Metoprolol Succinate 50 mg XL Tab PO SCH (17:50)
--- NOTE | 2017-01-01 22:00 | CP.PCM.HP ---
History of Present Illness - History of Present Illness History of Present Illness: 56 M with PMH of DM, afib on anticoagulation, s/p liver transplant, Mitral valve replacement presents to ED with complaint of palpitations. Patient stated that this has been going on intermittently for 2 weeks. It was a gradual onset and have progressively gotten worse. As per patient, he saw his bias machine operator helper recently and he put a "monitor" on his heart. Today, his palpitations became worse and called bias machine operator helper who instructed him to go to ED. Patient takes coumadin daily and is compliant. Patient takes glipizide and insulin for his DM. He doesnt check sugars daily or take insulin regularly. Patient also complains of epigastric discomfort that he describes as pressure. He stated it was minimal. Nothing make symptoms better or worse. Admits to fatigue. Denies fever/chills, vision changes, dizziness/lightheadedness, vertigo, cp, cough, sob , n/v/d., we admitted the pt , called cardiology consult Present on Admission - Present on Admission Any Indicators Present on Admission: No Review of Systems - Constitutional Constitutional: As Per HPI, Fatigue, Headache, Snoring - EENT Eyes: As Per HPI Ears: As Per HPI Nose/Mouth/Throat: As Per HPI - Cardiovascular Cardiovascular: As Per HPI, Dyspnea, Palpitations - Respiratory Respiratory: As Per HPI, Dyspnea on Exertion - Gastrointestinal Gastrointestinal: As Per HPI - Musculoskeletal Musculoskeletal: As Per HPI - Integumentary Integumentary: As Per HPI - Neurological Neurological: As Per HPI - Psychiatric Psychiatric: As Per HPI - Hematologic/Lymphatic Hematologic: As Per HPI Past Patient History - Infectious Disease Hx of Infectious Diseases: None - Tetanus Immunizations Tetanus Immunization: Unknown - Past Medical History & Family History Past Medical History?: Yes - Past Social History Smoking Status: Never Smoked - CARDIAC Hx Cardia Arrhythmia: Yes (A Fib) Hx Mitral Valve Prolapse: Yes - PULMONARY Other/Comment: No Shortness of Breath. - NEUROLOGICAL HX Cerebrovascular Accident: Yes Hx Transient Ischemic Attacks (TIA): Yes - HEENT Hx Deafness: Yes ([place] in right ear) - RENAL Other/Comment: liver transplant - ENDOCRINE/METABOLIC Hx Diabetes Mellitus Type 1: Yes - HEMATOLOGICAL/ONCOLOGICAL Hx Hepatitis B: Yes - MUSCULOSKELETAL/RHEUMATOLOGICAL Hx Falls: No - GASTROINTESTINAL Hx Liver Failure: Yes (transplant 2004) - GENITOURINARY/GYNECOLOGICAL Hx Prostate Problems: Yes - PSYCHIATRIC Hx Depression: No Hx Emotional Abuse: No Hx Physical Abuse: No - SURGICAL HISTORY Hx Cardiac Catheterization: Yes Hx Liver Transplant: Yes (2004) Hx Open Heart Surgery: Yes Hx Valve Replacement: Yes (MITRAL) Meds Allergies/Adverse Reactions: Allergies Allergy/AdvReac Type Severity Reaction Status Date / Time No Known Allergies Allergy Verified 07/21/15 21:44 Physical Exam - Head Exam Head Exam: ATRAUMATIC, NORMAL INSPECTION, NORMOCEPHALIC - Neck Exam Neck exam: Positive for: Full Rom Results - Vital Signs Recent Vital Signs: Last Vital Signs Temp 98.5 F 01/01/17 17:56 Pulse 81 01/01/17 18:00 Resp 20 01/01/17 17:56 BP 101/59 L 01/01/17 17:56 Pulse Ox 98 01/01/17 06:00 - Labs Result Diagrams: 01/01/17 10:30 01/01/17 10:30 Labs: Laboratory Results - last 24 hr 12/31/16 01/01/17 01/01/17 21:05 01:36 08:12 WBC RBC Hgb Hct MCV MCH MCHC RDW Plt Count MPV Gran % Lymph % (Auto) [place] % (Auto) Eos % (Auto) Baso % (Auto) Gran # Lymph # [place] # Eos # Baso # PT INR Sodium Potassium Chloride Carbon Dioxide Anion Gap BUN Creatinine Est GFR ( Amer) Est GFR (Non-Af Amer) POC Glucose (mg/dL) 286 H 272 H Random Glucose Hemoglobin A1c 11.6 H Calcium Phosphorus Magnesium Iron TIBC % Saturation Total Bilirubin AST ALT Alkaline Phosphatase Lactate Dehydrogenase Total Creatine Kinase Troponin I NT-Pro-B Natriuret Pep Total Protein Albumin Globulin Albumin/Globulin Ratio Triglycerides Cholesterol LDL Cholesterol Direct HDL Cholesterol Vitamin B12 Folate 01/01/17 01/01/17 01/01/17 10:30 10:30 10:57 WBC 3.4 L D RBC 4.43 Hgb 12.4 L Hct 37.8 L MCV 85.3 MCH 28.0 MCHC 32.8 RDW 14.9 H Plt Count 107 L MPV 11.2 H Gran % 65.8 Lymph % (Auto) 24.0 [place] % (Auto) 6.4 H Eos % (Auto) 3.2 Baso % (Auto) 0.6 Gran # 2.25 Lymph # 0.8 L [place] # 0.2 Eos # 0.1 Baso # 0.02 PT INR Sodium 135 Potassium 4.7 Chloride 102 Carbon Dioxide 27 Anion Gap 11 BUN 16 Creatinine 0.8 Est GFR ( Amer) > 60 Est GFR (Non-Af Amer) > 60 POC Glucose (mg/dL) 367 H Random Glucose 398 H* Hemoglobin A1c Calcium 8.6 Phosphorus 2.6 Magnesium 1.4 L Iron TIBC % Saturation Total Bilirubin 1.3 AST 60 H ALT 57 H Alkaline Phosphatase 241 H Lactate Dehydrogenase 1075 H Total Creatine Kinase 107 Troponin I < 0.01 NT-Pro-B Natriuret Pep 1160 H Total Protein 6.8 Albumin 3.4 Globulin 3.5 Albumin/Globulin Ratio 1.0 L Triglycerides 93 Cholesterol 166 LDL Cholesterol Direct 72 HDL Cholesterol 63 H Vitamin B12 805 Folate 15.8 01/01/17 01/01/17 01/01/17 11:30 11:32 11:32 WBC RBC Hgb Hct MCV MCH MCHC RDW Plt Count MPV Gran % Lymph % (Auto) [place] % (Auto) Eos % (Auto) Baso % (Auto) Gran # Lymph # [place] # Eos # Baso # PT 17.7 H INR 1.64 H Sodium Potassium Chloride Carbon Dioxide Anion Gap BUN Creatinine Est GFR ( Amer) Est GFR (Non-Af Amer) POC Glucose (mg/dL) Random Glucose Hemoglobin A1c 11.5 H Calcium Phosphorus Magnesium Iron 74 TIBC 308 % Saturation 24 Total Bilirubin AST ALT Alkaline Phosphatase Lactate Dehydrogenase Total Creatine Kinase Troponin I NT-Pro-B Natriuret Pep Total Protein Albumin Globulin Albumin/Globulin Ratio Triglycerides Cholesterol LDL Cholesterol Direct HDL Cholesterol Vitamin B12 Folate 01/01/17 16:27 WBC RBC Hgb Hct MCV MCH MCHC RDW Plt Count MPV Gran % Lymph % (Auto) [place] % (Auto) Eos % (Auto) Baso % (Auto) Gran # Lymph # [place] # Eos # Baso # PT INR Sodium Potassium Chloride Carbon Dioxide Anion Gap BUN Creatinine Est GFR ( Amer) Est GFR (Non-Af Amer) POC Glucose (mg/dL) 281 H Random Glucose Hemoglobin A1c Calcium Phosphorus Magnesium Iron TIBC % Saturation Total Bilirubin AST ALT Alkaline Phosphatase Lactate Dehydrogenase Total Creatine Kinase Troponin I NT-Pro-B Natriuret Pep Total Protein Albumin Globulin Albumin/Globulin Ratio Triglycerides Cholesterol LDL Cholesterol Direct HDL Cholesterol Vitamin B12 Folate Assessment & Plan (1) Pancytopenia Status: Acute (2) Atrial fibrillation with RVR Status: Acute (3) COPD (chronic obstructive pulmonary disease) Status: Acute (4) H/O prosthetic mitral valve Status: Acute (5) BETTIE (obstructive sleep apnea) Status: Acute (6) Uncontrolled diabetes mellitus Status: Acute (7) Sprain of wrist Status: Acute - Assessment and Plan (Free Text) Assessment: Atrial Fibrillation Rapid Ventricular Rate Converted to Sinus Rythm. Prosthetic Mitral Valve, Liver Transplant, DM. Plan: Follow todays PT, INR. Patient was taking home Verapamil 40mg Q * Hourly but will Increase now to 80mg TID as per dr butler . Continue Metoprolol Succinate 50mg BID, Coumadine 10mg Daily. Ptient follows with Dr Escamilla in [facility] and wants to continue to follow with him. Atrial fibrillation with RVR. Uncontrolled DM. Hypomagnesemia. Cirrhosis. History CVA. History Liver transplant Hold cardizem for now.as per cardiology Plan: Assessment & Plan (1) BETTIE (obstructive sleep apnea) Assessment and Plan: sleep apnea precaution, out patient sleep study,avoid sedation Status: Acute (2) H/O prosthetic mitral valve Assessment and Plan: on anticoagulation Status: Acute (3) Atrial fibrillation with RVR Assessment and Plan: on anticoagulation and presently controle rate on iv cardiazem Status: Acute (4) Uncontrolled diabetes mellitus Assessment and Plan: followup BS Status: Acute (5) COPD (chronic obstructive pulmonary disease),
[2017-01-02 06:23] VITALS: O2SAT 96
[2017-01-02 07:45] LABS: HEMOGLOBIN 12.3 gm/dL (14.0-18.0); MEAN CELL VOLUME 84.8 fL (80.0-105.0); MEAN PLATELET VOLUME 11.1 fl (7.0-11.0); RBC 4.4 10^6/uL (3.5-6.1); RED CELL DISTRIBUTION WIDTH 14.9 % (11.5-14.5); WHITE BLOOD COUNT 3.3 10^3/ul (4.5-11.0)
[2017-01-02 07:49] LABS: INR 1.85 (0.93-1.08)
[2017-01-02 07:53] LABS: BLOOD UREA NITROGEN 16 mg/dL (7-21); CALCIUM 8.3 mg/dL (8.4-10.5); GFR AFRICAN-AMERICAN > 60; GFR NON-AFRICAN AMERICAN > 60; MAGNESIUM 1.6 mg/dL (1.7-2.2)
[2017-01-02] MEDS: Insulin Reg-MEDIUM-Coverage SC SCH ×3 (08:00→17:21)
[2017-01-02] MEDS: Pantoprazole 40 mg EC Tab PO SCH (09:15)
[2017-01-02] MEDS: Magnesium Oxide 400 mg Tab UD PO SCH ×2 (09:15→17:22)
[2017-01-02] MEDS: Metoprolol Succinate 50 mg XL Tab PO SCH ×2 (09:24→17:11)
[2017-01-02] MEDS ORDERED: Magnesium Sulfate 2 GM in Sodium Chloride 0.9% 100 ML IVPB ONE (11:23)
[2017-01-02] MEDS ORDERED: Magnesium Oxide 400 mg Tab UD PO SCH (11:23)
[2017-01-02] MEDS ORDERED: Enoxaparin 80 mg Syringe SC SCH (11:30)
--- NOTE | 2017-01-02 14:22 | CARD ---
APPROVED REPORT EKG Measurement Heart [id number] <Conclusion> Sinus rhythm with 1st degree AV block Otherwise normal ECG
[2017-01-02 17:27] VITALS: BP 105/64; PULSE 66
[2017-01-02 17:33] VITALS: RESP 20; TEMP 98.5
--- NOTE | 2017-01-03 09:16 | PN ---
DATE: 01/02/2017 REASON FOR CONSULTATION: AFib with rapid ventricular rate, paroxysmal atrial fibrillation, is status post MVR. BRIEF CLINICAL HISTORY: This is a 56-year-old male with past medical history of rheumatic mitral valve disease, status post mechanical mitral valve placement in 06/2004 at [facility]. History of hepatitis C, history of liver transplant by Dr. Ty Sanders at [facility] in 12/2004. On Coumadin and Prograf, being followed by Dr. Clay at [facility] who was admitted with new onset of atrial fibrillation with rapid ventricular rate. Overnight, the patient converted to normal sinus. He denies any chest pain or shortness of breath or any palpitation. PHYSICAL EXAMINATION: As follows: VITAL SIGNS: Temperature afebrile, heart rate 66, blood pressure 105/55. HEENT: PERRLA. Extraocular muscles intact. NECK: Supple. No cervical lymphadenopathy. CHEST: Clear to auscultation. HEART: S1 and S2, regular. ABDOMEN: Soft. EXTREMITIES: Clubbing and cyanosis negative. LABORATORY DATA: Blood workup as follows: WBC 3.3, hemoglobin 12.3, hematocrit 37.3, platelet count 109. Chemistry showed sodium 134, potassium 4.0, chloride 103, carbon dioxide 27, anion gap of 8, BUN 16, and creatinine 0.8, magnesium 1.6. Coumadin INR 1.85. IMPRESSION: Subtherapeutic INR, paroxysmal atrial fibrillation, now converted to normal sinus. History of mechanical mitral valve replacement in 06/2004, history of liver transplant in 12/[address] Ty Sanders. He was on Prograf and Coumadin. RECOMMENDATIONS: Continue verapamil for AFib, the patient converted to normal sinus, continue anticoagulation. Goal is to keep the INR between 2.5 to 3. Since INR is therapeutic, we will give a dose of Lovenox. The patient is being followed by Dr. Clay. Upon discharge, the patient is to be followed by Dr. Clay. Possible discharge planning in a day or two. The patient admitted with AFib with rapid ventricular rate, now patient converted to normal sinus, history of paroxysmal atrial fibrillation, and mechanical valve. Needs well anticoagulation. Goal is to keep INR between 2 to 2.5. We will follow with you. We will get an EKG. Thank you DR. Yeager for the opportunity in taking care of Laureano Vasquez. If patient becomes bradycardiac, we can discontinue Toprol; otherwise, we will continue Toprol and verapamil. As mentioned, we will give a dose of Lovenox as a bridge because INR is subtherapeutic. Marley Huber MD cc: Keri Yeager MD MTDD
--- NOTE | 2017-01-03 22:07 | CP.PCM.DIS ---
Provider - Provider Date of Admission: 12/31/16 19:37 Attending physician: Keri Yeager MD Primary care physician: Charity Bolden MD Time Spent in preparation of Discharge (in minutes): 60 Diagnosis - Discharge Diagnosis (1) Pancytopenia Status: Acute (2) Atrial fibrillation with RVR Status: Acute (3) COPD (chronic obstructive pulmonary disease) Status: Acute (4) H/O prosthetic mitral valve Status: Acute (5) BETTIE (obstructive sleep apnea) Status: Acute (6) Uncontrolled diabetes mellitus Status: Acute (7) Sprain of wrist Status: Acute Hospital Course - Lab Results Lab Results: Most Recent Lab Values WBC 3.3 10^3/ul (4.5-11.0) L 01/02/17 07:00 RBC 4.40 10^6/uL (3.5-6.1) 01/02/17 07:00 Hgb 12.3 gm/dL (14.0-18.0) L 01/02/17 07:00 Hct 37.3 % (42.0-52.0) L 01/02/17 07:00 MCV 84.8 fL (80.0-105.0) 01/02/17 07:00 MCH 28.0 pg (25.0-35.0) 01/02/17 07:00 MCHC 33.0 g/dl (31.0-37.0) 01/02/17 07:00 RDW 14.9 % (11.5-14.5) H 01/02/17 07:00 Plt Count 109 10^3/uL (120.0-450.0) L 01/02/17 07:00 MPV 11.1 fl (7.0-11.0) H 01/02/17 07:00 Gran % 65.8 % (50.0-68.0) 01/01/17 10:30 Lymph % (Auto) 24.0 % (22.0-35.0) 01/01/17 10:30 Collier % (Auto) 6.4 % (1.0-6.0) H 01/01/17 10:30 Eos % (Auto) 3.2 % (1.5-5.0) 01/01/17 10:30 Baso % (Auto) 0.6 % (0.0-3.0) 01/01/17 10:30 Gran # 2.25 (1.4-6.5) 01/01/17 10:30 Lymph # 0.8 (1.2-3.4) L 01/01/17 10:30 Collier # 0.2 (0.1-0.6) 01/01/17 10:30 Eos # 0.1 (0.0-0.7) 01/01/17 10:30 Baso # 0.02 K/mm3 (0.0-2.0) 01/01/17 10:30 PT 20.0 Seconds (9.9-11.8) H 01/02/17 07:00 INR 1.85 (0.93-1.08) H 01/02/17 07:00 APTT 32.0 Seconds (23.7-30.8) H 12/31/16 16:55 pO2 36 mm/Hg (30-55) 12/31/16 16:55 VBG pH 7.32 (7.32-7.43) 12/31/16 16:55 VBG pCO2 52.0 (40-60) 12/31/16 16:55 VBG HCO3 26.8 mmol/l (21-28) 12/31/16 16:55 VBG Total CO2 28.4 mmol.L (22-28) H 12/31/16 16:55 VBG O2 Sat (Calc) 77.2 % (40-65) H 12/31/16 16:55 VBG Base Excess -0.1 mmol/L (0.0-2.0) L 12/31/16 16:55 VBG Potassium 4.3 mmol/L (3.6-5.2) 12/31/16 16:55 Sodium 137.0 mmol/L (132-148) 12/31/16 16:55 Chloride 103.0 mmol/L (98-107) 12/31/16 16:55 Glucose 476 mg/dl (75-110) H* 12/31/16 16:55 Lactate 1.4 mmol/L (0.7-2.1) 12/31/16 16:55 FiO2 21.0 % 12/31/16 16:55 Sodium 134 mmol/L (132-148) 01/02/17 07:00 Potassium 4.2 mmol/L (3.6-5.0) 01/02/17 07:00 Chloride 103 mmol/L (98-107) 01/02/17 07:00 Carbon Dioxide 27 mmol/L (21-33) 01/02/17 07:00 Anion Gap 8 (10-20) L 01/02/17 07:00 BUN 16 mg/dL (7-21) 01/02/17 07:00 Creatinine 0.8 mg/dL (0.5-1.4) 01/02/17 07:00 Est GFR ( Amer) > 60 01/02/17 07:00 Est GFR (Non-Af Amer) > 60 01/02/17 07:00 POC Glucose (mg/dL) 212 mg/dL (65-110) H 01/02/17 16:06 Random Glucose 200 mg/dL (70-110) H 01/02/17 07:00 Hemoglobin A1c 11.5 % (4.2-6.5) H 01/01/17 11:32 Calcium 8.3 mg/dL (8.4-10.5) L 01/02/17 07:00 Phosphorus 2.6 mg/dL (2.5-4.5) 01/01/17 10:30 Magnesium 1.6 mg/dL (1.7-2.2) L 01/02/17 07:00 Iron 74 ug/dL (45-180) 01/01/17 11:32 TIBC 308 ug/dL (261-462) 01/01/17 11:32 % Saturation 24 % (20-55) 01/01/17 11:32 Total Bilirubin 1.3 mg/dL (0.2-1.3) 01/01/17 10:30 AST 60 U/L (15-59) H 01/01/17 10:30 ALT 57 U/L (7-56) H 01/01/17 10:30 Alkaline Phosphatase 241 U/L (38-133) H 01/01/17 10:30 Lactate Dehydrogenase 1075 U/L (333-699) H 01/01/17 10:30 Total Creatine Kinase 107 U/L (35-230) 01/01/17 10:30 Troponin I < 0.01 ng/mL 01/01/17 10:30 NT-Pro-B Natriuret Pep 1160 pg/mL (0-450) H 01/01/17 10:30 Total Protein 6.8 g/dL (5.8-8.3) 01/01/17 10:30 Albumin 3.4 g/dL (3.0-4.8) 01/01/17 10:30 Globulin 3.5 gm/dL 01/01/17 10:30 Albumin/Globulin Ratio 1.0 (1.1-1.8) L 01/01/17 10:30 Triglycerides 93 mg/dL (35-160) 01/01/17 10:30 Cholesterol 166 mg/dL (130-200) 01/01/17 10:30 LDL Cholesterol Direct 72 mg/dL (0-129) 01/01/17 10:30 HDL Cholesterol 63 mg/dL (29-60) H 01/01/17 10:30 Vitamin B12 805 pg/mL (239-931) 01/01/17 10:30 Folate 15.8 ng/mL 01/01/17 10:30 TSH 3rd Generation 2.47 mIU/mL (0.46-4.68) 01/02/17 07:00 Venous Blood Potassium 4.3 mmol/L (3.6-5.2) 12/31/16 16:55 Urine Color Yellow (YELLOW) 12/31/16 18:40 Urine Appearance Clear (CLEAR) 12/31/16 18:40 Urine pH 6.0 (4.7-8.0) 12/31/16 18:40 Ur Specific [place] 1.015 (1.005-1.035) 12/31/16 18:40 Urine Protein Negative mg/dL (<30 mg/dL) 12/31/16 18:40 Urine Glucose (UA) >=1000 mg/dL (NEGATIVE) 12/31/16 18:40 Urine Ketones Negative mg/dL (NEGATIVE) 12/31/16 18:40 Urine Blood Trace-intact (NEGATIVE) H 12/31/16 18:40 Urine Nitrate Negative (NEGATIVE) 12/31/16 18:40 Urine Bilirubin Negative (NEGATIVE) 12/31/16 18:40 Urine Urobilinogen 0.2 E.U./dL (<1 E.U./dL) 12/31/16 18:40 Ur Leukocyte Esterase Negative [place]/uL (NEGATIVE) 12/31/16 18:40 Urine RBC 1 - 3 /hpf (0-2) 12/31/16 18:40 Urine WBC 0 - 2 /hpf (0-6) 12/31/16 18:40 - Hospital Course Hospital Course: 56 M with PMH of DM, afib on anticoagulation, s/p liver transplant, Mitral valve replacement presents to ED with complaint of palpitations. Patient stated that this has been going on intermittently for 2 weeks. It was a gradual onset and have progressively gotten worse. As per patient, he saw his jewelry manager recently and he put a "monitor" on his heart. Today, his palpitations became worse and called jewelry manager who instructed him to go to ED. Patient takes coumadin daily and is compliant. Patient takes glipizide and insulin for his DM. He doesnt check sugars daily or take insulin regularly. Patient also complains of epigastric discomfort that he describes as pressure. He stated it was minimal. Nothing make symptoms better or worse. Admits to fatigue. Denies fever/chills, vision changes, dizziness/lightheadedness, vertigo, cp, cough, sob , n/v/d., we admitted the pt , called cardiology consult Assessment: Atrial Fibrillation Rapid Ventricular Rate Converted to Sinus Rythm. Prosthetic Mitral Valve, Liver Transplant, DM. Plan: Follow todays PT, INR. Patient was taking home Verapamil 40mg Q * Hourly but will Increase now to 80mg TID. Continue Metoprolol Succinate 50mg BID, Coumadine 10mg Daily. Ptient follows with Dr Escamilla in [facility]3] and wants to continue to follow with him. Discharge Exam - Head Exam Head Exam: ATRAUMATIC, NORMAL INSPECTION, NORMOCEPHALIC - Eye Exam Eye Exam: EOMI, Normal appearance, PERRL Pupil Exam: NORMAL ACCOMODATION, PERRL - GI/Abdominal Exam GI & Abdominal Exam: Normal Bowel Sounds - Rectal Exam Rectal Exam: NORMAL INSPECTION - Exam Exam: Circumcision, NORMAL INSPECTION External exam: NORMAL EXTERNAL EXAM Speculum exam: NORMAL SPECULUM EXAM Bimanual exam: NORMAL BIMANUAL EXAM - Neurological Exam Neurological exam: Alert, CN II-XII Intact, Normal Gait, Oriented x3, Reflexes Normal - Psychiatric Exam Psychiatric exam: Normal Affect, Normal Mood - Skin Skin Exam: Dry, Intact, Normal Color, Warm Discharge Plan - Follow Up Plan Condition: FAIR Disposition: HOME/ ROUTINE Instructions: Atrial Fibrillation (DC), Heart Healthy Diet (DC), How to Check Your Blood Sugar (DC), Diabetes Mellitus Type 2 in Adults (DC) Additional Instructions: Follow up with Dr. Yeager in her office 01/03/17 Bring all meds with you Referrals: Charity Bolden MD [Primary Care Provider] -
--- NOTE | 2017-01-04 11:17 | PN ---
DATE: 01/02/2017 REFERRING PHYSICIAN: Dr. Hall. SUBJECTIVE: He is lying in the bed, head at 45 degrees. and daughter are at bedside. Dietitian at bedside explaining about diabetic diet. The patient will be discharged home today. There is no more palpitation. No chest pain. *------* loud snoring at nighttime, daytime sleepy *------*. No leg pain or leg swelling. MEDICATIONS: He is on Calan 80 mg 3 times a day, CellCept 750 mg twice a day, Coumadin 10 mg given today, Flomax 0.4 mg daily, glipizide 10 mg 3 times a day, insulin coverage, Lovenox 80 mg q.12 hours, magnesium oxide 400 mg twice a day, Prograf 1 mg twice a day, Protonix 40 mg daily, Toprol-XL 50 mg twice a day. PHYSICAL EXAMINATION VITAL SIGNS: Temperature 99, heart rate 63, respiratory rate is 18, blood pressure 105/64, pulse ox 97% on room air. HEENT: Moist mucous membranes *------*. Mallampati score is 4. NECK: Supple. No JVD. CARDIOPULMONARY: Regularly irregular. LUNGS: Fair entry with *------* rhonchi. ABDOMEN: Soft and nontender. No organomegaly. EXTREMITIES: There is no edema. NEUROLOGIC: *------*. LABORATORY DATA: Shows hemoglobin 12.3, hematocrit 37.3, WBC 3.3, platelet is 109. INR 1.85. Sodium 134, potassium 4.2, chloride 103, bicarbonate 27, BUN 16, creatinine 0.8, glucose 200, calcium is 8.3, magnesium 1.6. EKG done today shows sinus rhythm and first-degree AV block. IMPRESSION AND PLAN: Atrial fibrillation with rapid ventricular response on admission, diabetes, history of liver transplant, chronic obstructive lung disease, history of prosthetic mitral valve. Case discussed with the patient and family at bedside. All the questions answered. Spoke to nursing staff. The patient is stable to be transferred out of the hospital. We will need attended sleep study to rule out sleep apnea syndrome. Also need PFT to evaluate chronic obstructive pulmonary disease, on anticoagulation. Fall precaution. We will send a prescription to sleep center for attended sleep study. I will follow with you. Marley Pittman MD [facility] # [id number]
--- NOTE | 2017-01-06 10:51 | PN ---
DATE: 01/02/2017 REASON FOR CONSULTATION: AFib with rapid ventricular rate, paroxysmal atrial fibrillation, is status post MVR. BRIEF CLINICAL HISTORY: This is a 56-year-old male with past medical history of rheumatic mitral valve disease, status post mechanical mitral valve placement in 06/2004 at [facility]3]. History of hepatitis C, history of liver transplant by Dr. Crawford *------*at [facility] in 12/2004. On Coumadin and Prograf, being followed by Dr. Clay at [facility]3] who was admitted with new onset of atrial fibrillation with rapid ventricular rate. Overnight, the patient converted to normal sinus. He denies any chest pain or shortness of breath or any palpitation. PHYSICAL EXAMINATION: As follows: VITAL SIGNS: Temperature afebrile, heart rate *------*, blood pressure 105/55. HEENT: PERRLA. Extraocular muscles intact. NECK: Supple. No cervical lymphadenopathy. CHEST: Clear to auscultation. HEART: S1 and S2, regular. ABDOMEN: Soft. EXTREMITIES: Clubbing and cyanosis negative. LABORATORY DATA: Blood workup as follows: WBC 3.3, hemoglobin 12.3, hematocrit 37.3, platelet count 109. Chemistry showed sodium 134, potassium 4.0, chloride 103, carbon dioxide 27, anion gap of 8, BUN 16, and creatinine 0.8, magnesium 1.6. Coumadin INR 1.85. IMPRESSION: Subtherapeutic INR, paroxysmal atrial fibrillation, now converted to normal sinus. History of mechanical mitral valve replacement in 06/2004, history of liver transplant in 12/[address] Crawford *------*. He was on Prograf and Coumadin. RECOMMENDATIONS: Continue verapamil for AFib, the patient converted to normal sinus, continue anticoagulation. Goal is to keep the INR between 2.5 to 3. Since INR is therapeutic, we will give a dose of Lovenox. The patient is being followed by Dr. Clay. Upon discharge, the patient is to be followed by Dr. Clay. Possible discharge planning in a day or two. The patient admitted with AFib with rapid ventricular rate, now patient converted to normal sinus, history of paroxysmal atrial fibrillation, and mechanical valve. Needs well anticoagulation. Goal is to keep INR between 2 to 2.5. We will follow with you. We will get an EKG. Thank you *------* for the opportunity in taking care of Laureano Vasquez. If patient becomes bradycardiac, we can discontinue Toprol; otherwise, we will continue Toprol and verapamil. As mentioned, we will give a dose of Lovenox as a bridge because INR is subtherapeutic. Marley Huber MD cc: Keri Yeager MD
== END 2017-01-02 17:46 | disposition home or self-care (01) | DRG 309 ==
LOC: ED 16:39 → ERH 19:37 → 2RSO 23:48
PROVIDERS: ADMIT Internal Medicine; ATTEND Internal Medicine
DX: I48.0 Paroxysmal atrial fibrillation (principal); D61.818 Other pancytopenia; Z94.4 Liver transplant status; K74.60 Unspecified cirrhosis of liver; E11.65 Type 2 diabetes mellitus with hyperglycemia; E83.42 Hypomagnesemia; G47.33 Obstructive sleep apnea (adult) (pediatric); J44.9 Chronic obstructive pulmonary disease, unspecified; H91.90 Unspecified hearing loss, unspecified ear; I34.1 Nonrheumatic mitral (valve) prolapse; Z95.2 Presence of prosthetic heart valve; Z79.4 Long term (current) use of insulin; Z79.01 Long term (current) use of anticoagulants; Z86.73 Personal history of transient ischemic attack (TIA), and cerebral infarction without residual deficits; Z86.19 Personal history of other infectious and parasitic diseases; Z79.899 Other long term (current) drug therapy